=== PATIENT | male | born 1995 | race Hispanic/Latino ===

== ENCOUNTER 2017-04-22 13:24 | Emergency (ER) | payer SELFPAY | END 2017-04-22 14:46 | disposition home or self-care (01) | LOC: EDH 13:24 | DX: K64.8 Other hemorrhoids (principal); Z72.0 Tobacco use ==

== ENCOUNTER 2019-01-20 18:36 | Emergency (ER) | payer SELFPAY ==
[2019-01-20] MEDS ORDERED: DIPHENHYDRAMINE HCL 25 MG CAPSULE ONE (18:49)
== END 2019-01-20 19:09 | disposition home or self-care (01) ==
LOC: EDH 18:36
DX: L23.9 Allergic contact dermatitis, unspecified cause (principal); K64.9 Unspecified hemorrhoids; Z72.0 Tobacco use
CPT/HCPCS: 99282; Q0163